=== PATIENT | female | born 1990 | race Caucasian/White ===

== ENCOUNTER 2021-06-22 19:15 | Emergency (ER) | payer OTHER ==
[~2021-06-22] VITALS: Ht 149.9 cm; Wt 45.4 kg
[~2021-06-22 19:15] MED LIST: FEOSOL1 TAB; FOLIC ACID1 MG; GILTUSS TR1 TAB.SR .
[2021-06-22] MEDS ORDERED: STONEX PO (23:27)
[2021-06-22] MEDS ORDERED: TAMS0.4C PO (23:27)
[2021-06-22] MEDS ORDERED: KETO10TA2 PO (23:27)
[2021-06-22] MEDS ORDERED: PERCOCET 5-3251 EACH PO (23:27)
== END 2021-06-22 23:48 ==
LOC: ER 19:15
DX: N20.1 Calculus of ureter (principal); N20.0 Calculus of kidney